=== PATIENT | male | born 1955 | race Caucasian/White ===

== ENCOUNTER → 2017-02-09 | Outpatient (CLI) | payer OTHER ==
[~2017-02-09] MED LIST: NS 100 ML IV 100 ML IV ONE
[2017-02-09 08:52] LABS: CREATININE 1.1 mg/dL (0.70-1.30)
--- NOTE | 2017-02-09 16:07 | CT ---
HISTORY: Carotid bruit Study: CT angiography of the neck Comparison: Carotid Doppler 01/07/2017 Technique: Multiple axial images of the neck obtained after the administration of IV contrast using CTA protoco l. 3D reconstructions were performed utilizing radial maximum intensity projection imaging. Dose re duction techniques including Automated Exposure Control (AEC) and adjustment of mA and kV were utili zed. Findings: The right and left carotid systems are widely patent. There is mild calcified plaque in the left car otid bulb. There is no significant stenosis identified by NASCET criteria. No evidence of dissection . Normal appearance of the visualized thoracic aorta without evidence of a significant proximal sten osis to account for diminished velocities on previous Doppler exam. Partially visualized sternotomy changes. The visualized lungs are clear. The soft tissues and osseous structures are unremarkable. IMPRESSION: 1. No significant carotid stenosis. There is mild calcified plaque at the left bifurcation. 2. No evidence of proximal stenosis at the aortic arch to account for diminished velocities seen on previous carotid Doppler exam. Reported By:
== END ==
LOC: RAD 08:10
PROVIDERS: ATTEND Internal Medicine Cardiovascular Disease
DX: R09.89 Other specified symptoms and signs involving the circulatory and respiratory systems (principal)
CPT/HCPCS: 36415; 70498; 82565; 84520; A4222